=== PATIENT | female | born 1995 | race Caucasian/White ===

== ENCOUNTER 2021-07-28 18:59 | Emergency (ER) | payer OTHER ==
[~2021-07-28] VITALS: Ht 160 cm; Wt 59.0 kg
[2021-07-28 19:38] VITALS: BP 128/70
--- NOTE | 2021-07-28 19:41 | NUR ---
PT AMBULATED TO LOBBY WITH STEADY GAIT
[2021-07-28 22:55] VITALS: BP 128/70
--- NOTE | 2021-07-28 22:55 | NUR ---
Patient discharged with v/s stable. Written and verbal after care instructions given and explained. Patient verbalized understanding. Ambulatory with steady gait. All questions addressed prior to discharge. Advised to follow up with PMD.
== END 2021-07-28 22:55 | disposition home or self-care (01) ==
LOC: MED 18:59
DX: S93.601A Unspecified sprain of right foot, initial encounter (principal); W19.XXXA Unspecified fall, initial encounter; Y93.41 Activity, dancing; Y92.89 Other specified places as the place of occurrence of the external cause; Y99.8 Other external cause status
CPT/HCPCS: 73630; 99283